=== PATIENT | female | born 1965 | race Caucasian/White ===

== ENCOUNTER → 2016-07-14 | Outpatient (CLI) | payer BC | LOC: MC.RAD 12:53 | DX: Z12.31 Encounter for screening mammogram for malignant neoplasm of breast (principal) ==

== ENCOUNTER → 2017-07-15 | Outpatient (CLI) | payer BC | LOC: MC.RAD 14:40 | DX: Z12.31 Encounter for screening mammogram for malignant neoplasm of breast (principal) ==

== ENCOUNTER 2017-11-18 15:21 | Observation (INO) | payer BC ==
[~2017-11-18] VITALS: Ht 180.3 cm; Wt 78.0 kg
[2017-11-18] VITALS (8 sets, daily range): BP systolic 106–131; BP diastolic 57–79; PULSE 58–98; TEMP 97.1–98.8
[2017-11-18] MEDS ORDERED: [UNRECOGNIZED DRUG - OTHER] PO (16:04)
[2017-11-18] MEDS ORDERED: PERCOCET 325 MG1 TA2 PO (17:26)
[2017-11-18] MEDS ORDERED: MOTRIN 600600 MG/TAB PO (17:27)
[2017-11-18] MEDS ORDERED: COLACE 100100 MG/CAP PO (17:27)
[2017-11-18] MEDS ORDERED: AMOXICILLIN 8751 TAB PO (17:49)
[2017-11-19 00:26] VITALS: BP 110/69; PULSE 78; TEMP 98
[2017-11-19 05:44] VITALS: BP 114/58; PULSE 66; TEMP 98.5
[2017-11-19 08:42] VITALS: BP 111/64; PULSE 69; TEMP 98.3
[2017-11-19 12:55] VITALS: BP 116/64; PULSE 69; TEMP 97.6
== END 2017-11-19 14:55 | disposition home or self-care (01) ==
LOC: SDCO 15:21 → MEDICAL 17:30
DX: K35.80 Unspecified acute appendicitis (principal)
CPT/HCPCS: A9284; G0378; G0379; J0694; J1100; J2405; J2704; J2710; J3010; J7120

== ENCOUNTER 2018-01-04 07:00 | Day surgery (SDC) | payer BC ==
[~2018-01-04] VITALS: Ht 177.8 cm; Wt 87.3 kg
[~2018-01-04 07:00] MED LIST: AMOXICILLIN 8751 TAB PO; COLACE 100100 MG/CAP PO; MOTRIN 600600 MG/TAB PO; PERCOCET 325 MG1 TA2 PO; [UNRECOGNIZED DRUG - OTHER] PO
[2018-01-04 07:26] VITALS: BP 107/79; PULSE 63; TEMP 97.7
[2018-01-04 08:45] VITALS: BP 119/71; PULSE 73; TEMP 97.8
[2018-01-04 09:00] VITALS: BP 128/66; PULSE 61
[2018-01-04 09:15] VITALS: BP 103/60; PULSE 65
== END 2018-01-04 09:35 | disposition home or self-care (01) ==
LOC: SDCO 07:00
DX: Z12.11 Encounter for screening for malignant neoplasm of colon (principal)
CPT/HCPCS: J2250; J2405; J3010; J7030

== ENCOUNTER → 2018-11-17 | Outpatient (CLI) | payer BC | LOC: MC.RAD 07:44 | DX: Z12.31 Encounter for screening mammogram for malignant neoplasm of breast (principal) ==

== ENCOUNTER → 2020-04-15 | Outpatient (CLI) | payer BC | LOC: MC.RAD 09:14 | DX: Z12.31 Encounter for screening mammogram for malignant neoplasm of breast (principal) ==